=== PATIENT | female | born 1995 | race African-American/Black ===

== ENCOUNTER 2017-04-20 18:53 | Emergency (ER) | payer OTHER ==
[2017-04-20 19:04] VITALS: BP 130/84; PULSE 82; TEMP 98.3; BMI 25.9
[2017-04-20] MEDS ORDERED: KETOROLAC TROMETHAMINE 60 MG/2 ML VIAL IM ONE (20:24)
[2017-04-20] MEDS ORDERED: KETOROLAC TROMETHAMINE 60 MG/2 ML VIAL ONE (20:49)
[2017-04-20] MEDS ORDERED: IBUPROFEN 600 MG TABLET (FP) PO ONE (20:56)
[2017-04-20] MEDS ORDERED: IBUPROFEN 400 MG TABLET (FP) PO ONE (20:56)
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
[2017-04-20] MEDS ORDERED: CYCLOBENZAPRINE HCL 10 MG TABLET (FP) PO ONE (21:51)
[2017-04-20] MEDS ORDERED: CYCLOBENZAPRINE HCL 10 MG TABLET (FP) ONE (21:53)
== END 2017-04-20 21:59 | disposition home or self-care (01) ==
LOC: JERFT 18:53 → JER 18:53
PROC: 3E0233Z Introduction of Anti-inflammatory into Muscle, Percutaneous Approach (ICD-10-PCS; principal; 2017-04-20)
DX: S46.811A Strain of other muscles, fascia and tendons at shoulder and upper arm level, right arm, initial encounter (principal); V73.5XXA Driver of bus injured in collision with car, pick-up truck or van in traffic accident, initial encounter; Y92.414 Local residential or business street as the place of occurrence of the external cause; Y93.89 Activity, other specified; Y99.9 Unspecified external cause status
CPT/HCPCS: 73030-TC-RT; 84703; 99283-25

== ENCOUNTER 2018-04-21 02:40 | Emergency (ER) | payer OTHER ==
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
[2018-04-21 03:31] VITALS: BP 141/85; PULSE 92; TEMP 98; BMI 25.0
== END 2018-04-21 03:22 | disposition home or self-care (01) ==
LOC: JER 02:40
DX: S70.312A Abrasion, left thigh, initial encounter (principal); V47.6XXA Car passenger injured in collision with fixed or stationary object in traffic accident, initial encounter; Y92.488 Other paved roadways as the place of occurrence of the external cause; W22.12XA Striking against or struck by front passenger side automobile airbag, initial encounter; Y93.89 Activity, other specified; Y99.8 Other external cause status
CPT/HCPCS: 99281-25

== ENCOUNTER 2018-06-17 08:09 | Emergency (ER) | payer OTHER ==
[2018-06-17 08:17] VITALS: BP 99/63; PULSE 77; TEMP 98.6; BMI 15.6
[2018-06-17] MEDS ORDERED: FAMOTIDINE 20 MG/50 ML IVPB 20 MG/50 ML MG IVPB ONE ×2 (08:43→09:03)
[2018-06-17] MEDS ORDERED: ACETAMINOPHEN 1000 MG/100 ML VIAL (NON FORMULARY) IVPB ONE (08:43)
[2018-06-17] MEDS ORDERED: ONDANSETRON 4 MG/2 ML VIAL IVPUSH ONE (08:43)
[2018-06-17] MEDS ORDERED: SODIUM CHLORIDE 1,000 ML IV STA ×2 (08:43→10:38)
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
[2018-06-17] MEDS ORDERED: ACETAMINOPHEN INJECTION 100 ML IVPB ONE (09:02)
[2018-06-17] MEDS ORDERED: ONDANSETRON 4 MG/2 ML VIAL ONE (09:02)
[2018-06-17 09:36] LABS: URINE APPEARANCE CLEAR; URINE BILIRUBIN NEGATIVE (<2.0 mg/dL); URINE COLOR YELLOW; URINE GLUCOSE (UA) NEGATIVE (NEGATIVE); URINE KETONE NEGATIVE (NEGATIVE); URINE LEUK ESTERASE NEGATIVE (NEGATIVE); URINE NITRITE NEGATIVE (NEGATIVE); URINE PROTEIN 1+ (NEGATIVE); URINE UROBILINOGEN NEGATIVE mg/dL (0.2-1.0)
[2018-06-17 09:39] LABS: BASO % 0.7 % (0-2.0); EOS % 1.3 % (0-4.5); HEMATOCRIT 42.6 % (32.4-45.2); MCHC 32.8 g/dl (32.0-36.0); MEAN CELL VOLUME 91.6 fl (80-96); MEAN PLT VOLUME 8.2 fl (7.5-11.1); MONO % 6.1 % (3.8-10.2); NEUT % 67.9 % (42.8-82.8); PLATELET COUNT 259 K/MM3 (134-434); RBC 4.64 M/mm3 (3.60-5.2); RDW 13.3 % (11.6-15.6)
[2018-06-17 09:48] LABS: EPI CELLS MODERATE /HPF (FEW); URINE BACTERIA RARE /hpf (NONE SEEN); URINE MUCUS RARE
[2018-06-17] MEDS ORDERED: KETOROLAC TROMETHAMINE 30 MG/1 ML VIAL IVPUSH ONE (10:38)
[2018-06-17] MEDS ORDERED: KETOROLAC TROMETHAMINE 30 MG/1 ML VIAL ONE (10:48)
[2018-06-17 12:18] LABS: BLOOD UREA NITROGEN 12 mg/dL (7-18); GLUCOSE,RANDOM 93 mg/dL (74-106)
[2018-06-17 12:19] LABS: ALBUMIN 3.9 g/dl (3.4-5.0); ANION GAP 3 MMOL/L (8-16); BILIRUBIN,TOTAL 0.7 mg/dL (0.2-1); CHLORIDE 106 mmol/L (98-107); CO2 29 mmol/L (21-32); CREATININE 0.8 mg/dL (0.55-1.3); POTASSIUM 4.3 mmol/L (3.5-5.1); SGOT/AST 23 U/L (15-37); SODIUM 138 mmol/L (136-145); TOT PROT 7.3 g/dl (6.4-8.2)
[2018-06-17 12:20] LABS: ALK PHOS 57 U/L (45-117); SGPT/ALT 26 U/L (13-61)
[2018-06-17 13:03] LABS: COCAINE, UR NEGATIVE ng/ml (CUTOFF=300); METHADONE, UR NEGATIVE ng/ml (CUTOFF=300); OPIATES, URI NEGATIVE ng/ml (CUTOFF=300); PHENCYCLIDINE,URINE NEGATIVE ng/ml (CUTOFF=25); URINE AMPHETAMINES NEGATIVE ng/ml (CUTOFF=500); URINE BARBITURATES NEGATIVE ng/ml (CUTOFF=200); URINE BENZODIAZEPINES NEGATIVE ng/ml (CUTOFF=200)
== END 2018-06-17 13:22 | disposition home or self-care (01) ==
LOC: JER 08:09
PROC: 3E033GC Introduction of Other Therapeutic Substance into Peripheral Vein, Percutaneous Approach (ICD-10-PCS; principal; 2018-06-17)
PROC: 3E033GC Introduction of Other Therapeutic Substance into Peripheral Vein, Percutaneous Approach (ICD-10-PCS; 2018-06-17)
PROC: 3E0333Z Introduction of Anti-inflammatory into Peripheral Vein, Percutaneous Approach (ICD-10-PCS; 2018-06-17)
DX: R11.2 Nausea with vomiting, unspecified (principal)
CPT/HCPCS: 36415; 80053; 80307; 81003; 81015; 84703; 85025; 87086; 99283-25; J0131; J7030